=== PATIENT | female | born 1955 | race Hispanic/Latino ===

== ENCOUNTER 2019-02-26 07:00 | Outpatient (RCR) | payer BC | END 2019-03-13 | LOC: PT 07:00 | PROVIDERS: ATTEND Specialist | DX: M17.0 Bilateral primary osteoarthritis of knee (principal) ==

== ENCOUNTER → 2020-03-06 | Day surgery (SDC) | payer BC ==
[2020-03-01 09:03] LABS: BASOPHILS % 0.4 % (0.0-1.0); EOSINOPHILS # (AUTO) 0.1 (0.0-0.4); EOSINOPHILS % 2.2 % (0.0-6.0); HEMATOCRIT 40.1 % (34.2-44.1); HEMOGLOBIN 12.4 g/dL (12.0-16.0); LYMPHOCYTES # (AUTO) 1.7 (1.0-3.2); LYMPHOCYTES % 34.7 % (18.0-39.1); MEAN CORPUSCULAR HEMOGLOBIN 26.7 pg (28-32); MEAN CORPUSCULAR HGB CONC 30.9 g/dL (31-35); MEAN CORPUSCULAR VOLUME 86.4 fL (81-99); MONOCYTES # (AUTO) 0.4 (0.2-0.8); MONOCYTES % 8.3 % (4.4-11.3); NEUTROPHILS # (AUTO) 2.7 (2.1-6.9); NEUTROPHILS % 54.2 % (38.7-80.0); PLATELET COUNT 321 x10e3/uL (140-360); RED BLOOD COUNT 4.64 x10e6/uL (3.6-5.1)
[2020-03-01 09:13] LABS: INR 0.99; PROTHROMBIN TIME 13.6 seconds (11.9-14.5)
[2020-03-01 09:14] LABS: PARTIAL THROMBOPLASTIN TIME 31.1 seconds (23.8-35.5)
[2020-03-01 09:21] LABS: ALANINE AMINOTRANSFERASE 41 IU/L (0-55); ALBUMIN/GLOBULIN RATIO 1.1 (0.8-2.0); ALKALINE PHOSPHATASE 68 IU/L (40-150); ANION GAP 10.4 mmol/L (8-16); BLOOD UREA NITROGEN 17 mg/dL (7-26); BUN/CREATININE RATIO 21 (6-25); CALCIUM 9.2 mg/dL (8.4-10.2); CARBON DIOXIDE 28 mmol/L (22-29); CHLORIDE 106 mmol/L (98-107); EST GLOMERULAR FILTRATION RATE > 60 ML/MIN (60-); GLUCOSE 106 mg/dL (74-118); POTASSIUM 4.4 mmol/L (3.5-5.1); SODIUM 140 mmol/L (136-145)
--- NOTE | 2020-03-03 14:20 | NUR ---
Pt contacted by phone for interview ([phone])of scheduled procedure. Review of medical history and current medications. Procedural consent on day of arrival to be completed, pre-op orders, and twice bathing education completed. All questions clarified and or answered where appropriate. pt verbalizes understanding to include day of procedure expectations and practice social distancing. Pt aware to be using provided/ personal mask for COVID-19 mitigation and visitor limitations. - cgf
[~2020-03-06] VITALS: Ht 162.6 cm; Wt 81.6 kg
[2020-03-06] VITALS (10 sets, daily range): BP systolic 97–111; BP diastolic 64–84
[~2020-03-06] MED LIST: ASPIRIN 325 MG TAB ONE; ELIQUIS5 MG; FENTANYL CITRATE/PF 100MCG/2 ML INJ ONE; HEPARIN SOD (PORCINE) 1000 UNIT/ML 30ML ONE; HEPARIN SOD/SOD CHLORIDE 2,000 ML ONE; IOPAMIDOL 370 MG/ML 200 ML INFUS..BTL INJ ONE; LIDOCAINE HCL 2% LOCAL 20 ML VIAL ONE; METOPROLOL TART25 MG PO; MIDAZOLAM HCL 2 MG/2 ML VIAL ONE; MULTAQ400 MG PO; NITROGLYCERIN/D5W 200 MCG/ML 250 ML ONE; SODIUM CHLORIDE 0.9% 1000ML 1,000 ML ONE; VERAPAMIL HCL 2.5 MG/ML 2 ML VIAL ONE
--- NOTE | 2020-03-06 10:15 | NUR ---
attempted to release 3cc from PT'S RT band per DR. CAMARGO'S ORDERS. SITE IMMEDIATELY STARTED TO BLEED. AIR RE-INSERTED. WILL ATTEMPT AGAIN IN 30 MIN. PT TOLERATED WELL. PT'S DAUGHTER REMAINS AT BS
--- NOTE | 2020-03-06 10:45 | NUR ---
1045: 3CC AIR RELEASED FROM RT TR BAND. NO BLEEDING NOTED. RT RADIAL PULSE PRESENT BY PALPATION
--- NOTE | 2020-03-06 11:55 | NUR ---
dc instructions reviewed/given to pt/pt's daughter including: diet, puncture site care, restrictions, home meds, and follow up appt with understanding verbalized by both. script x 1 given
--- NOTE | 2020-03-06 12:15 | NUR ---
remaining air released from RT TR BAND. NO BLEEDING NOTED. BAND REMOVED AND PRESSURE DRSG PLACED, PT TOLERATED WELL.
--- NOTE | 2020-03-06 12:31 | NUR ---
pt meets all criteria for dc home at this time. pt getting dressed with assist from her daughter.
--- NOTE | 2020-03-06 12:33 | NUR ---
20g to pt's lh dc'ed and drsg placed. catheter tip noted intact. pt tolerated well.
--- NOTE | 2020-03-06 12:35 | NUR ---
pt leaving [facility] via [facility] for home. dc instructions with pt/pt's daughter
--- NOTE | 2020-03-09 01:44 | Operative Report ---
DATE OF PROCEDURE: 03/06/2020 SURGEON: Kevon Bass MD PROCEDURE: Cardiac catheterization. PROCEDURE INDICATION: Ventricular tachycardia. PROCEDURES PERFORMED: 1. Left heart catheterization. 2. Selective coronary angiography. 3. Moderate sedation. 4. Ultrasound-guided access. 5. TR band hemostasis. CHAIN SALES REPRESENTATIVE: Kevon Bass MD PROCEDURE COMPLICATIONS: None. ESTIMATED BLOOD LOSS: Less than 50 mL. PROCEDURE SUMMARY: After consent was obtained, the patient was prepped and draped in a sterile fashion. The right radial site was locally infiltrated with 2% lidocaine. An access was obtained. A 5-Tajik Terumo sheath was advanced. A TIG catheter was used for engagement of left main, right coronary artery, and to cross the aortic valve for hemodynamic measurements. These were the following findings: 1. LV pressure is 115/12 with end-diastolic pressure of 22. 2. Aortic pressure is 112/75. 3. No left ventriculogram was performed. 4. Left main has luminal irregularities large in caliber, gives an LAD and circumflex. 5. The LAD has luminal irregularities throughout, gives a couple diagonals and multiple septal perforators as it courses to the apex where it wraps around and ends. 6. The left circumflex has luminal irregularities, gives two obtuse marginals. 7. The right coronary artery has luminal irregularities. A dominant vessel. It gives 2 RV marginals in the mid segment and a terminal RPDA and RPLV. CONCLUSION: Luminal irregularities without obstructive coronary artery disease, mildly elevated LVEDP. Recommend continued medical management and evaluation of these episodes of ventricular tachycardia. Kevon Bass MD AFV/MODL /[id number]
== END | disposition home or self-care (01) ==
LOC: CATH LAB 06:59
PROVIDERS: ATTEND Internal Medicine Cardiovascular Disease
DX: I47.2 Ventricular tachycardia (principal); I25.10 Atherosclerotic heart disease of native coronary artery without angina pectoris; I83.893 Varicose veins of bilateral lower extremities with other complications; R60.0 Localized edema; E78.5 Hyperlipidemia, unspecified; E66.01 Morbid (severe) obesity due to excess calories; I48.92 Unspecified atrial flutter; I48.0 Paroxysmal atrial fibrillation; M19.90 Unspecified osteoarthritis, unspecified site; Z01.812 Encounter for preprocedural laboratory examination; Z20.828 Contact with and (suspected) exposure to other viral communicable diseases; Z68.30 Body mass index [BMI] 30.0-30.9, adult
CPT/HCPCS: 36415; 76937; 80053; 85025; 85610; 85730; 93458; C1769; C1887; J1644; J2001; J2250; J3010; J7030; Q9967; U0002; 99152